=== PATIENT | male | born 1985 | race Hispanic/Latino ===

== ENCOUNTER 2022-11-01 02:32 | Emergency (ER) | payer OTHER ==
[2022-11-01] MEDS ORDERED: IBUPROFEN 400 MG TAB ONE (04:02)
[2022-11-01] MEDS ORDERED: AMOX/K CLAV 875 MG TAB ONE (04:26)
[2022-11-01] MEDS ORDERED: TDAP (DIPHTH,PERTUSS(ACELL),TET VAC) 0.5 ML VIAL IMVAC ONE (04:27)
[2022-11-01] MEDS ORDERED: HYDROCODONE/APAP 10/325 TAB ONE (04:27)
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
[2022-11-01 05:26] VITALS: TEMP 98.8; O2SAT 100
[2022-11-01 05:29] VITALS: BP 155/90
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
== END 2022-11-01 05:21 | disposition home or self-care (01) ==
LOC: ER 02:32
DX: S00.83XA Contusion of other part of head, initial encounter (principal); Y04.1XXA Assault by human bite, initial encounter; Z23 Encounter for immunization; R73.03 Prediabetes
CPT/HCPCS: 70450; 70486; 76377; 90471; 99283